=== PATIENT | male | born 1970 | race American Indian/Alaskan Native ===

== ENCOUNTER 2016-08-25 09:06 | Observation (INO) | payer OTHER ==
[2016-08-25 09:06] VITALS: BMI 32.8
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
--- NOTE | 2016-08-25 10:58 | CT ---
PROCEDURE: CT HEAD WITHOUT CONTRAST. HISTORY: L sided headache x1 month COMPARISON: None available. TECHNIQUE: Axial computed tomography images were obtained through the head/brain without intravenous contrast. Radiation dose: Total exam DLP = 896.24 mGy-cm. This CT exam was performed using one or more of the following dose reduction techniques: Automated exposure control, adjustment of the mA and/or kV according to patient size, and/or use of iterative reconstruction technique. FINDINGS: HEMORRHAGE: There is a 3 mm curvilinear hyperdensity in the left frontal extra-axial space. There is a mixed density right frontal and parietal convexity extra-axial fluid collection measuring approximately 10 mm. BRAIN: There is no mass, mass effect or midline shift. There is no evidence of herniation. Ashley-white matter differentiation is preserved. VENTRICLES: The ventricles are normal in size, shape and configuration. There is nonspecific prominence of bifrontal extra-axial CSF spaces. CALVARIUM: There is focal scalloping in the right frontal bone without evidence of underlying mass although small arachnoid cyst cannot be excluded however is difficult to assess on the current examination due to presence of presumable mixed density hemorrhage. PARANASAL SINUSES: Predominantly clear. MASTOID AIR CELLS: Predominantly clear. OTHER FINDINGS: None. IMPRESSION: 1. 3 mm curvilinear acute left frontal subdural hematoma. 2. Subacute/chronic right frontal subdural hematoma. 3. No evidence of mass effect, midline shift, herniation or parenchymal/subarachnoid hemorrhage. Important findings were discussed with Dr. Reece in the ER on 08/25/2016 at 10:38 a.m.
[2016-08-25 11:55] LABS: BASO % 0.3 % (0.0-2.0); EOS % 0.2 % (0.0-4.0); HEMATOCRIT 43.4 % (35.0-51.0); LYMPH # 2.5 K/uL (1.0-4.3); LYMPH % 28.9 % (20.0-40.0); MEAN CELL VOLUME 96.6 fl (80.0-94.0); MEAN CORPUSCULAR HEMOGLOBIN 32.4 pg (27.0-31.0); MEAN CORPUSCULAR HGB CONC 33.5 g/dL (33.0-37.0); MEAN PLATELET VOLUME 8.2 fl (7.2-11.7); MONO # 0.8 K/uL (0.0-0.8); MONO % 8.8 % (0.0-10.0); NEUT # 5.3 K/uL (1.8-7.0); NEUT % 61.8 % (50.0-75.0); NRBC % 0.1 % (0.0-0.0); RED CELL DISTRIBUTION WIDTH 13.5 % (11.5-14.5); WHITE BLOOD COUNT 8.6 K/uL (4.8-10.8)
[2016-08-25 12:06] LABS: CHLORIDE 106 mmol/L (98-107); SODIUM 140 mmol/l (132-148)
[2016-08-25 12:07] LABS: POTASSIUM 4.3 MMOL/L (3.6-5.0)
[2016-08-25 12:09] LABS: ALB/GLOB RATIO 1.4 (1.0-2.1); ALKALINE PHOSPHATASE 43 U/L (38-126); ALT/SGPT 21 U/L (21-72); AST/SGOT 23 U/L (17-59); BILIRUBIN,TOTAL 0.7 mg/dl (0.2-1.3); BLOOD UREA NITROGEN 13 mg/dl (9-20); CARBON DIOXIDE 23 mmol/L (22-30); GFR AFRICAN-AMERICAN > 60; GLUCOSE,RANDOM 97 mg/dL (75-110); PARTIAL THROMBOPLASTIN TIME 33.4 SECONDS (23.3-32.5); TOTAL PROTEIN 7.9 G/DL (6.3-8.2)
[2016-08-25 12:10] LABS: CALCIUM 9.5 mg/dL (8.4-10.2)
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
[2016-08-25] MEDS ORDERED: Gadodiamide 287 MG/ML VIAL (15ML) IV ONE (18:26)
[2016-08-25 21:15] LABS: HEMATOCRIT 43.6 % (35.0-51.0); MEAN CELL VOLUME 96.5 fl (80.0-94.0); MEAN CORPUSCULAR HEMOGLOBIN 31.9 pg (27.0-31.0); RED CELL DISTRIBUTION WIDTH 13.3 % (11.5-14.5); WHITE BLOOD COUNT 8.6 K/uL (4.8-10.8)
[2016-08-25] MEDS: Multivitamin Vitamin B Complex (Nephro-Vite) Tab PO SCH (21:34)
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
[2016-08-26] MEDS: Multivitamin Vitamin B Complex (Nephro-Vite) Tab PO SCH (09:26)
--- NOTE | 2016-08-26 10:02 | MRI ---
PROCEDURE: MRI BRAIN WITH AND WITHOUT CONTRAST HISTORY: acute left subdural hematoma COMPARISON: 08/25/2016 TECHNIQUE: Multiplanar, multisequence MR images of the brain were obtained with and without intravenous contrast enhancement. FINDINGS: HEMORRHAGE: None DWI: No evidence of an acute or early subacute infarction. BRAIN PARENCHYMA: No mass,mass effect or edema. No atrophy or chronic microvascular ischemic changes. There is a 3 centimeter right frontal arachnoid cyst with mild mass-effect on the right parietal lobe and scalloping of the inner table of the calvarium. ENHANCEMENT: No abnormal intracranial enhancement. VENTRICLES: Unremarkable. No hydrocephalus. CRANIUM: Unremarkable. ORBITS: Grossly unremarkable. PARANASAL SINUSES/MASTOIDS: Clear VASCULAR SYSTEM: Skull base flow voids intact. OTHER FINDINGS: None . IMPRESSION: No evidence of subdural hematoma. Right frontal arachnoid cyst.
--- NOTE | 2016-08-26 10:11 | CT ---
PROCEDURE: CT HEAD WITHOUT CONTRAST. HISTORY: Follow up, acute subdural hematoma COMPARISON: 08/25/2016 TECHNIQUE: Axial computed tomography images were obtained through the head/brain without intravenous contrast. Radiation dose: Total exam DLP = 894.70 mGy-cm. This CT exam was performed using one or more of the following dose reduction techniques: Automated exposure control, adjustment of the mA and/or kV according to patient size, and/or use of iterative reconstruction technique. FINDINGS: HEMORRHAGE: There is interval improvement in known small left frontal subdural hemorrhage with minimal residual hemorrhage. There is redemonstration of right frontal subacute/chronic subdural hemorrhage. BRAIN: Ashley-white matter differentiation is preserved. There is no mass or mass effect there is no territorial infarction. There is normal density in the larger dural venous sinuses. VENTRICLES: The ventricles are normal in size, shape and configuration. CALVARIUM: The skull base and calvarium are stable in appearance. There scalloping of the inner cortex of the right frontal bone which may be related to an underlying arachnoid cyst. PARANASAL SINUSES: Predominantly clear. MASTOID AIR CELLS: Predominantly clear. OTHER FINDINGS: None. IMPRESSION: 1. Interval improvement in known small left frontal subdural hemorrhage. 2. Persistent right frontal subacute/chronic hemorrhage.
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
[2016-08-26 16:19] VITALS: BP 118/74; PULSE 67; RESP 18; TEMP 97.9; O2SAT 98
--- NOTE | 2016-09-01 14:25 | EEG ---
DATE: 08/26/2016 The record is obtained for a history of altered mental status. The patient has an acute left subdura l hematoma and the record is obtained to rule out encephalopathy, rule out seizures. The record was obtained while patient was awake and alert. The record was symmetrically equal on both sides with ve locity of 8-9 cycles per second. The waves were fairly formed, fairly organized with a posterior dis tribution, moderate in amplitude, reactive to eye opening by attenuation. There were some abnormal d ischarges that were seen in the left frontotemporal area consisting of cerebral dysrhythmia that last ed only for a few seconds and then disappeared and there were no changes with photic stimulation. Th e hyperventilation was omitted. The record did not show any periods of drowsiness. There were no pe riods of sleep and the photic stimulation was performed and did not produce any changes. There were eye movement artifacts, electrode artifacts, EKG artifacts that were seen abundantly and very few mus andrews movement artifacts that were seen. SUMMARY: This is an abnormal record, significant for left frontotemporal cerebral dysrhythmia. This might be consistent with left subdural hemorrhage that he has and a followup EEG in the future and f ollowup neuroimaging of the brain is to be performed as well as observation of the patient's symptoms as this might progress to a seizure disorder in the future and a followup of the subdural hematoma t o assess if it is organizing soon or is still there. It might cause encephalopathy also in the long run. Clinical correlation is recommended. Elisa Moore MD cc: [phone] TT: 09/01/2016 08:30:16 Confirmation # [id number] Dictation # [id number]
== END 2016-08-26 16:44 | disposition home or self-care (01) ==
LOC: H.ER 09:06 → H.ERHOLD 11:44 → INTOOBSV 11:44 → H.TEL 12:49
PROVIDERS: ADMIT Family Medicine; ATTEND Family Medicine
DX: S06.5X0A Traumatic subdural hemorrhage without loss of consciousness, initial encounter (principal); V89.2XXA Person injured in unspecified motor-vehicle accident, traffic, initial encounter; Y93.9 Activity, unspecified; Y92.9 Unspecified place or not applicable; E78.00 Pure hypercholesterolemia, unspecified

== ENCOUNTER 2017-04-06 10:57 | Emergency (ER) | payer OTHER ==
[2017-04-06 11:03] VITALS: BMI 34.8
[2017-04-06 11:04] VITALS: RESP 16; TEMP 98
[2017-04-06 11:56] LABS: BASO % 0.4 % (0.0-2.0); EOS # 0.1 K/uL (0.0-0.7); EOS % 0.8 % (0.0-4.0); HEMATOCRIT 43.7 % (35.0-51.0); LYMPH # 2.9 K/uL (1.0-4.3); LYMPH % 34.8 % (20.0-40.0); MEAN CELL VOLUME 95.4 fl (80.0-94.0); MEAN CORPUSCULAR HEMOGLOBIN 31.7 pg (27.0-31.0); MEAN CORPUSCULAR HGB CONC 33.2 g/dL (33.0-37.0); MEAN PLATELET VOLUME 8.1 fl (7.2-11.7); MONO % 11.5 % (0.0-10.0); NEUT # 4.4 K/uL (1.8-7.0); NEUT % 52.5 % (50.0-75.0); NRBC % 0.1 % (0.0-0.0); RED CELL DISTRIBUTION WIDTH 13.6 % (11.5-14.5); WHITE BLOOD COUNT 8.3 K/uL (4.8-10.8)
--- NOTE | 2017-04-06 11:58 | ED PDOC ---
HPI: Chest Pain Time Seen by Provider: 04/06/17 11:23 Chief Complaint (Nursing): Chest Pain Chief Complaint (Provider): chest pain History Per: Patient History/Exam Limitations: no limitations Onset/Duration Of Symptoms: Days (3), Intermittent Episodes Current Symptoms Are (Timing): Intermittent Episodes Context: Food Severity: Mild Quality: Tightness Associated Symptoms: denies: Nausea, Dyspnea, Diaphoresis Modifying Factors: None Exacerbating Factors: None Alleviating Factors: None Additional Complaint(s): 46yo male c/o left sided lower chest pain mostly after eating, ongoing intermittently for several days. He denies SOB, nausea/vomiting, cough or radiation of pain. Denies prior history of similar pain. Denies cardiac history or family history of CAD. Past Medical History Reviewed: Historical Data, Nursing Documentation, Vital Signs Vital Signs: Last Vital Signs Temp 98 F 04/06/17 11:03 Pulse 81 04/06/17 15:30 Resp 16 04/06/17 15:30 BP 130/79 04/06/17 15:30 Pulse Ox 100 04/06/17 15:30 - Medical History PMH: Hypercholesterolemia Denies: HIV, Chronic Kidney Disease Other PMH: subdural hemorrhage - Surgical History Surgical History: No Surg Hx - Family History Family History: States: Unknown Family Hx - Social History Current smoker - smoking cessation education provided: No - Home Medications Home Medications: Ambulatory Orders Medication Instructions Recorded Cholecalciferol [Vitamin D 1000 IU] 1 tab PO DAILY 08/25/16 Cyanocobalamin [Vitamin B12 1000 1 tab PO DAILY 08/25/16 mcg Tab] - Allergies Allergies/Adverse Reactions: Allergies Allergy/AdvReac Type Severity Reaction Status Date / Time No Known Allergies Allergy Verified 04/06/17 11:15 DANIELA Risk Score for UA/NSTEMI - DANIELA Risk Score Age > 64: NO 3 or more CAD Risk Factors: NO Known CAD (Stenosis greater than 50%): NO Aspirin use in past 7 days: NO Severe Angina: NO EKG ST changes greater than 0.5mm: NO Positive Cardiac Marker: NO DANIELA Score: 0 Risk %: 5% Review of Systems ROS Statement: Except As Marked, All Systems Reviewed And Found Negative Constitutional: Negative for: Fever, Chills Cardiovascular: Positive for: Chest Pain. Negative for: Palpitations, Orthopnea Respiratory: Negative for: Cough, Shortness of Breath, Hemoptysis Gastrointestinal: Negative for: Nausea, Vomiting, Abdominal Pain Genitourinary Male: Negative for: Dysuria, Frequency Musculoskeletal: Negative for: Neck Pain, Shoulder Pain Skin: Negative for: Rash, Lesions, Jaundice Neurological: Negative for: Weakness, Numbness, Dizziness Psych: Negative for: Anxiety Physical Exam - Reviewed Nursing Documentation Reviewed: Yes Vital Signs Reviewed: Yes - Physical Exam Appears: Positive for: Well, Non-toxic, No Acute Distress Head Exam: Positive for: ATRAUMATIC, NORMAL INSPECTION, NORMOCEPHALIC Skin: Positive for: Normal Color, Warm, DRY Eye Exam: Positive for: EOMI, Normal appearance, PERRL ENT: Positive for: Normal ENT Inspection Neck: Positive for: Normal, Painless ROM Cardiovascular/Chest: Positive for: Regular Rate, Rhythm Respiratory: Positive for: CNT, Normal Breath Sounds Gastrointestinal/Abdominal: Positive for: Bowel Sounds, Soft. Negative for: Tenderness, Guarding Back: Positive for: Normal Inspection Extremity: Positive for: Normal ROM Neurologic/Psych: Positive for: Alert, Oriented. Negative for: Motor/Sensory Deficits - Laboratory Results Result Diagrams: 04/06/17 11:46 04/06/17 11:46 - ECG O2 Sat by Pulse Oximetry: 97 Medical Decision Making Medical Decision Making: workup initiated for chest pain in patient without risk factors. HEART score 1 CXR, labwork reviewed ASA ordered trop negative troponin repeated approx 3 hrs and remains negative Patient given option for hospitalization for full cardiac workup but he prefers to go home and followup as outpatient. While low risk based on HEART score, 1.8% MACE explained and he is comfortable going home as he denies current symptoms and has accessible followup. Rec avoid exertion until cleared by cardio, ASA 81mg daily, return ER for any worse or new symptoms. Disposition - Clinical Impression Clinical Impression: Chest pain - Patient ED Disposition Is Patient to be Admitted: No Counseled Patient/Family Regarding: Studies Performed, Diagnosis, Need For Followup - Disposition Referrals: Rashawn Beltran MD [Staff Provider] - Yung Nazario MD [Family Provider] - Disposition: Routine/Home Disposition Time: 16:50 Condition: STABLE Additional Instructions: Followup with Dr Nazario as directed Return to ER for any return of symptoms. Take aspirin 81mg daily until cleared by ultrasound technol. Instructions: Chest Pain (ED) Forms: [employer] ([place]ian)
[2017-04-06 12:04] LABS: ALB/GLOB RATIO 1.4 (1.0-2.1); ALKALINE PHOSPHATASE 37 U/L (38-126); ALT/SGPT 32 U/L (21-72); AST/SGOT 22 U/L (17-59); BILIRUBIN,TOTAL 0.5 mg/dl (0.2-1.3); BLOOD UREA NITROGEN 13 mg/dl (9-20); CALCIUM 9.3 mg/dL (8.4-10.2); CARBON DIOXIDE 23 mmol/L (22-30); CHLORIDE 108 mmol/L (98-107); GFR AFRICAN-AMERICAN > 60; GLUCOSE,RANDOM 88 mg/dL (75-110); SODIUM 143 mmol/l (132-148); TOTAL PROTEIN 7.8 G/DL (6.3-8.2)
--- NOTE | 2017-04-06 15:17 | RAD ---
HISTORY: chest pain COMPARISON: 02/16/2014 TECHNIQUE: Chest PA and lateral FINDINGS: LUNGS: No active pulmonary disease. PLEURA: No significant pleural effusion identified. No pneumothorax apparent. CARDIOVASCULAR: No radiographic findings to suggest acute or significant cardiovascular disease. OSSEOUS STRUCTURES: No significant abnormalities. VISUALIZED UPPER ABDOMEN: Normal. OTHER FINDINGS: None. IMPRESSION: No active disease. No significant interval change compared to the prior examination(s). Concordant results with the preliminary interpretation rendered by the emergency department physician procedure.
--- NOTE | 2017-04-06 15:26 | US ---
HISTORY: upper abd pain COMPARISON: None. TECHNIQUE: Sonographic evaluation of the abdomen. FINDINGS: LIVER: Measures 15.2 cm. Normal echogenicity of the liver parenchyma. No mass. No intrahepatic bile duct dilatation. GALLBLADDER: Unremarkable. No gallstones. COMMON BILE DUCT: Measures 3.5 mm. No stones. No dilatation. PANCREAS: The tail of the pancreas is obscured by overlying bowel gas with remainder unremarkable. RIGHT KIDNEY: Measures 11.3cm. Normal echogenicity. No calculus, mass, or hydronephrosis. LEFT KIDNEY: Measures 12.5cm. Normal echogenicity. No calculus, mass, or hydronephrosis. SPLEEN: Normal in size and contour. No mass. AORTA: No aneurysmal dilatation. IVC: Unremarkable. OTHER FINDINGS: None. IMPRESSION: Partial imaging of the pancreas with the head through body unremarkable appearing in the tail obscured by overlying bowel gas. Remainder of the examination is unremarkable including the gallbladder and common bile duct.
[2017-04-06 17:15] VITALS: BP 130/79; PULSE 81
[2017-04-06 18:26] VITALS: O2SAT 97
--- NOTE | 2017-04-07 17:46 | CARD ---
APPROVED REPORT EKG Measurement Heart [id number] HI [id number] <Conclusion> Normal sinus rhythm Possible Left atrial enlargement Left ventricular hypertrophy Nonspecific T wave abnormality Abnormal ECG
== END 2017-04-06 17:14 | disposition home or self-care (01) ==
LOC: H.ER 10:57
DX: R07.89 Other chest pain (principal); E78.00 Pure hypercholesterolemia, unspecified

== ENCOUNTER 2017-08-04 08:32 | Emergency (ER) | payer OTHER ==
[2017-08-04 08:32] VITALS: BMI 34.8
[2017-08-04 08:37] VITALS: TEMP 97; O2SAT 97
[2017-08-04 08:49] VITALS: RESP 18
--- NOTE | 2017-08-04 09:27 | ED PDOC ---
HPI: Back Time Seen by Provider: 08/04/17 09:07 Chief Complaint (Nursing): Back Pain Chief Complaint (Provider): Back Pain History Per: Patient History/Exam Limitations: no limitations Onset/Duration Of Symptoms: Days (x2) Current Symptoms Are (Timing): Still Present Additional Complaint(s): 46 year old male with medical history of hypercholesterolemia, presents to the emergency department with a complaint of right-sided flank pain radiating to front abdomen ongoing for 2 days. He denied any back injury, urinary problems, fever, chills, weakness or tingling. PMD: none provided Past Medical History Reviewed: Historical Data, Nursing Documentation, Vital Signs Vital Signs: Last Vital Signs Temp 97 F L 08/04/17 08:47 Pulse 69 08/04/17 08:47 Resp 18 08/04/17 08:47 BP 119/81 08/04/17 08:47 Pulse Ox 97 08/04/17 08:47 - Medical History PMH: Hypercholesterolemia Denies: HIV, Chronic Kidney Disease - Surgical History Surgical History: No Surg Hx - Family History Family History: States: Unknown Family Hx - Social History Current smoker - smoking cessation education provided: No Alcohol: Occasional Drugs: Denies - Home Medications Home Medications: Ambulatory Orders Medication Instructions Recorded Cholecalciferol [Vitamin D 1000 IU] 1 tab PO DAILY 08/25/16 Cyanocobalamin [Vitamin B12 1000 1 tab PO DAILY 08/25/16 mcg Tab] Cyclobenzaprine [Cyclobenzaprine 10 mg PO TID #10 tab 08/04/17 HCl] Naproxen [Naprosyn] 500 mg PO Q12H #20 tab 08/04/17 - Allergies Allergies/Adverse Reactions: Allergies Allergy/AdvReac Type Severity Reaction Status Date / Time No Known Allergies Allergy Verified 08/04/17 08:47 Review of Systems ROS Statement: Except As Marked, All Systems Reviewed And Found Negative Constitutional: Negative for: Fever, Chills Gastrointestinal: Positive for: Abdominal Pain (right-sided) Genitourinary Male: Negative for: Dysuria, Incontinence, Hematuria Musculoskeletal: Positive for: Back Pain (right flank). Negative for: Other ( back injury) Neurological: Negative for: Weakness (or paresthesia) Physical Exam - Reviewed Nursing Documentation Reviewed: Yes Vital Signs Reviewed: Yes - Physical Exam Appears: Positive for: Non-toxic, No Acute Distress Cardiovascular/Chest: Positive for: Regular Rate, Rhythm, Chest Non Tender Respiratory: Positive for: Normal Breath Sounds. Negative for: Decreased Breath Sounds, Respiratory Distress Gastrointestinal/Abdominal: Positive for: Normal Exam, Soft. Negative for: Tenderness Back: Positive for: Normal Inspection. Negative for: L CVA Tenderness, R CVA Tenderness, Vertebral Tenderness Neurologic/Psych: Positive for: Alert (x3), Oriented - ECG O2 Sat by Pulse Oximetry: 97 (RA) Pulse Ox Interpretation: Normal Medical Decision Making Medical Decision Making: Initial Impression: Flank pain Initial Plan: * CT ABD.pelvis without contrast * Urine dipstick ____ Time: 1016 --CT ABD/pelvis FINDINGS: LOWER THORAX: Unremarkable. LIVER: Unremarkable. No gross lesion or ductal dilatation. GALLBLADDER AND BILE DUCTS: Unremarkable. PANCREAS: Unremarkable. No gross lesion or ductal dilatation. SPLEEN: Unremarkable. ADRENALS: Unremarkable. No mass. KIDNEYS AND URETERS: Unremarkable. No hydronephrosis. No solid mass. VASCULATURE: Unremarkable. No aortic aneurysm. BOWEL: Unremarkable. No obstruction. No gross mural thickening. APPENDIX: Unremarkable. Normal appendix. PERITONEUM: Unremarkable. No free fluid. No free air. LYMPH NODES: Unremarkable. No enlarged lymph nodes. BLADDER: Suboptimally distended. REPRODUCTIVE: Normal prostate BONES: No acute fracture. OTHER FINDINGS: None. IMPRESSION: No evidence of urinary calculus or urinary tract obstruction. Scribe Attestation: Documented by Venus Cárdenas, acting as a scribe for Demetrius Beckford MD. Provider Scribe Attestation: All medical record entries made by the Scribe were at my direction and personally dictated by me. I have reviewed the chart and agree that the record accurately reflects my personal performance of the history, physical exam, medical decision making, and the department course for this patient. I have also personally directed, reviewed, and agree with the discharge instructions and disposition. Disposition - Clinical Impression Clinical Impression: Low back pain - Patient ED Disposition Is Patient to be Admitted: No Counseled Patient/Family Regarding: Studies Performed, Diagnosis, Need For Followup, Rx Given - Disposition Referrals: [facility] [Outside] Disposition: Routine/Home Disposition Time: 11:17 Condition: FAIR Prescriptions: Cyclobenzaprine [Cyclobenzaprine HCl] 10 mg PO TID #10 tab Naproxen [Naprosyn] 500 mg PO Q12H #20 tab Instructions: Low Back Pain in Adults Forms: [facility] ([place])
--- NOTE | 2017-08-04 10:17 | CT ---
PROCEDURE: CT Abdomen and Pelvis without intravenous contrast HISTORY: r/o kidney stone COMPARISON: None. TECHNIQUE: Without contrast.. Contrast Dose: 0 Radiation dose: Total exam DLP = This CT exam was performed using one or more of the following dose reduction techniques: Automated exposure control, adjustment of the mA and/or kV according to patient size, and/or use of iterative reconstruction technique. FINDINGS: LOWER THORAX: Unremarkable. LIVER: Unremarkable. No gross lesion or ductal dilatation. GALLBLADDER AND BILE DUCTS: Unremarkable. PANCREAS: Unremarkable. No gross lesion or ductal dilatation. SPLEEN: Unremarkable. ADRENALS: Unremarkable. No mass. KIDNEYS AND URETERS: Unremarkable. No hydronephrosis. No solid mass. VASCULATURE: Unremarkable. No aortic aneurysm. BOWEL: Unremarkable. No obstruction. No gross mural thickening. APPENDIX: Unremarkable. Normal appendix. PERITONEUM: Unremarkable. No free fluid. No free air. LYMPH NODES: Unremarkable. No enlarged lymph nodes. BLADDER: Suboptimally distended. REPRODUCTIVE: Normal prostate BONES: No acute fracture. OTHER FINDINGS: None. IMPRESSION: No evidence of urinary calculus or urinary tract obstruction.
[2017-08-04 11:41] VITALS: BP 120/74; PULSE 70
== END 2017-08-04 11:41 | disposition home or self-care (01) ==
LOC: H.ER 08:32
DX: M54.5 Low back pain (principal); R10.9 Unspecified abdominal pain; E78.00 Pure hypercholesterolemia, unspecified

== ENCOUNTER 2018-06-20 20:53 | Emergency (ER) | payer OTHER ==
[2018-06-20 20:54] VITALS: BMI 34.8
[2018-06-20 20:58] VITALS: BP 160/80; PULSE 98; RESP 18; TEMP 97.4; O2SAT 100
[2018-06-20 22:11] LABS: BASO % 0.4 % (0.0-2.0); EOS % 0.3 % (0.0-4.0); HEMOGLOBIN 15.2 g/dL (12.0-18.0); LYMPH # 2.7 K/uL (1.0-4.3); LYMPH % 25.9 % (20.0-40.0); MEAN CELL VOLUME 97.7 fl (80.0-94.0); MEAN CORPUSCULAR HEMOGLOBIN 32.9 pg (27.0-31.0); MEAN CORPUSCULAR HGB CONC 33.7 g/dL (33.0-37.0); MEAN PLATELET VOLUME 8.3 fl (7.2-11.7); MONO # 0.9 K/uL (0.0-0.8); MONO % 8.9 % (0.0-10.0); NEUT # 6.7 K/uL (1.8-7.0); NEUT % 64.5 % (50.0-75.0); NRBC % 0.2 % (0.0-0.0); RBC 4.63 Mil/uL (4.40-5.90); RED CELL DISTRIBUTION WIDTH 14.1 % (11.5-14.5); WHITE BLOOD COUNT 10.4 K/uL (4.8-10.8)
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
[2018-06-20 22:37] LABS: ALB/GLOB RATIO 1.3 (1.0-2.1); ALBUMIN 4.9 g/dL (3.5-5.0); ALT/SGPT 24 U/L (21-72); AST/SGOT 32 U/L (17-59); BLOOD UREA NITROGEN 14 mg/dl (9-20); CALCIUM 9.6 mg/dL (8.4-10.2); GFR NON-AFRICAN AMERICAN > 60
[2018-06-21 12:46] LABS: HEPATITIS B SURFACE AG Negative (NEGATIVE)
[2018-06-21 12:52] LABS: HEPATITIS A IGM NEGATIVE (NEGATIVE); HEPATITIS B CORE AB NEGATIVE (NEGATIVE)
[2018-06-21 13:04] LABS: HEPATITIS C ANTIBODY NEGATIVE (NEGATIVE)
== END 2018-06-20 23:50 | disposition home or self-care (01) ==
LOC: H.ER 20:53
DX: Z77.21 Contact with and (suspected) exposure to potentially hazardous body fluids (principal); Y99.0 Civilian activity done for income or pay